=== PATIENT | male | born 1955 | race Two or more races ===

== ENCOUNTER 2018-08-05 13:51 | Outpatient (CLI) | payer MEDICAID ==
[~2018-08-05] VITALS: Ht 160 cm; Wt 78.0 kg
[2018-08-05 15:24] VITALS: BP 105/58
[2018-08-05] MEDS ORDERED: no medication (15:24)
--- NOTE | 2018-08-05 20:30 | Consultation ---
DATE OF CONSULTATION: 08/05/2018 CHIEF COMPLAINT: Cirrhosis. HISTORY OF PRESENT ILLNESS: The patient has past medical history of cirrhosis. Many years ago, he quit drinking and apparently he has not had followup since then, was referred to us for evaluation for cirrhosis and also needed screening colonoscopy. PAST MEDICAL HISTORY: Cirrhosis. PAST SURGICAL HISTORY: Left shoulder surgery. MEDICATIONS: None. FAMILY HISTORY: No family history of GI malignancies. SOCIAL HISTORY: The patient quit drinking 2013. Denies any tobacco or drugs. ALLERGIES: No known drug allergies. PHYSICAL EXAMINATION: VITAL SIGNS: Temperature 99.1, blood pressure 105/85, respirations 20, pulse 60. HEENT: Normocephalic and atraumatic. Sclerae anicteric. NECK: Supple. No evidence of lymphadenopathy. CARDIOVASCULAR: Regular rhythm. Plus S1 and S2. No obvious murmur. LUNGS: Decreased breath sounds bilaterally based on the supine exam. ABDOMEN: Soft and nontender. No rebound. No guarding. No peritoneal sign. EXTREMITIES: No cyanosis, no clubbing, no edema ASSESSMENT AND PLAN: Alcoholic cirrhosis per the patient's history. PLAN: Plan to schedule the patient for abdominal ultrasound as soon as authorization from insurance. Also we will plan to do an endoscopy to evaluation for varices, colonoscopy for screening as soon as authorization is obtained. The patient was given instruction for colonoscopy today. We also plan to the labs on the procedure day. Dejuan Swartz M.D. DR: Rob JOB#: [id number] CC:
== END 2018-08-05 15:51 | disposition home or self-care (01) ==
LOC: PAN 13:51
DX: K74.60 Unspecified cirrhosis of liver (principal)
CPT/HCPCS: 99202